=== PATIENT | female | born 1985 | race Caucasian/White ===

== ENCOUNTER 2019-09-02 12:56 | Emergency (ER) | payer OTHER ==
[~2019-09-02] VITALS: Ht 154.9 cm; Wt 95.3 kg
[2019-09-02 13:40] VITALS: Ht 154.9 cm; Wt 95.3 kg
[2019-09-02 15:15] LABS: BASOPHIL % 0.4 % (0-2); PLATELET COUNT 346 x10^3mcL (130-400); RED CELL DISTRIBUTION WIDTH 12.7 % (11.5-14.5)
[2019-09-02 15:43] LABS: CALCIUM 9.3 mg/dL (8.5-10.1); CARBON DIOXIDE 29.1 mmol/L (21-32); CHLORIDE SERUM 103 mmol/L (98-107); CREATININE SERUM 0.8 mg/dL (0.6-1.0); GFR1 > 60 mL/min; GLUCOSE SERUM 81 mg/dL (74-106); POTASSIUM SERUM 4.8 mmol/L (3.5-5.1); SODIUM SERUM 140 mmol/L (136-145)
[2019-09-02 15:48] LABS: ALKALINE PHOSPHATASE 106 U/L (46-116); ALT/SGPT 30 U/L (14-59); AST/SGOT 13 U/L (15-37); BILIRUBIN TOTAL 0.48 mg/dL (0.20-1.00)
[2019-09-02 16:48] VITALS: BP 135/92
== END 2019-09-02 16:48 | disposition home or self-care (01) ==
LOC: ED 12:56
PROVIDERS: Emergency Medicine
DX: R07.89 Other chest pain (principal); R11.0 Nausea; Z88.6 Allergy status to analgesic agent
CPT/HCPCS: Q0092